=== PATIENT | female | born 1945 | race Caucasian/White ===

== ENCOUNTER 2020-07-05 07:23 | Day surgery (SDC) | payer MEDICARE, OTHER, SELFPAY ==
--- NOTE | 2020-07-05 07:38 | ANES.PREOP_ITS ---
General Info Date of Service Date Performed: 07/05/20 Height: 5 ft 7 in Weight: 82.554 kg Body Mass Index (BMI): 28.5 Surgical Procedure: Operation Date: 07/05/20 09:40 Proposed Procedures Side Surgeon p Cataract Extraction with IOL Implant Left Micah Nickerson MD Meds Allergies and Home Medications Allergies Allergy/AdvReac Type Severity Reaction Status Date / Time No Known Allergies Allergy Unverified 07/05/20 07:53 Home Medication Medication Instructions Recorded atenolol 50 mg PO DAILY tab-cap NS 05/30/16 clotrimazole-betamethasone 15 gm TOPICAL DAILY NS 05/30/16 [Lotrisone Cream] estradiol [Vagifem] 10 mcg VG DAILY tab NS 05/30/16 ferrous sulfate 325 mg PO DAILY NS 05/30/16 levothyroxine 125 mcg PO DAILY tab-cap NS 05/30/16 lisinopril 40 mg PO DAILY tab-cap NS 05/30/16 lorazepam 0.5 mg PO DAILY NS 05/30/16 potassium chloride 10 meq PO DAILY 05/30/16 sertraline [Zoloft] 50 mg PO DAILY tab-cap NS 05/30/16 simvastatin 10 mg PO DAILY tab-cap NS 05/30/16 terazosin 1 mg PO DAILY tab-cap NS 05/30/16 tolterodine [Detrol La] 4 mg PO DAILY tab-cap NS 05/30/16 triamcinolone acetonide 15 gm TOPICAL DAILY script NS 05/30/16 fesoterodine [Toviaz] 4 mg PO DAILY 06/30/20 meloxicam 15 mg PO DAILY 06/30/20 metformin 500 mg PO BID 06/30/20 sulfamethoxazole-trimethoprim 1 tab PO DAILY 06/30/20 [Bactrim] Current Visit Medications: Current Medications Generic Name Dose Route Start Last Admin Trade Name Freq PRN Reason Stop Dose Admin Acetaminophen 1,000 mg 07/05/20 06:00 Acetaminophen 500 Mg Tab PO Q4H PRN PRN Miscellaneous Medication 0 ml 07/05/20 06:00 Prednisolone 1%, Moxifloxacin 0.5%, Nepafenac 0.1% 5ml Btl OS DIRECTED SANJEEV Miscellaneous Medication 0 ml 07/05/20 06:00 Tropicam./Phenyleph. (1/2.5%) 5 Ml Btl OS DIRECTED [facility] Tetracaine HCl 0 ml 07/05/20 06:00 Tetracaine 0.5% 4 Ml Btl OS DIRECTED [facility] PFSH Active Problems Active Problems: Problem Status Onset Code Cortical cataract of left eye H26.9 Nuclear sclerotic cataract of left eye H25.12 Medical History Medical History Anemia Chest pain Pt. 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 states she is not aware of this. Dysthymia Hypercholesterolemia Hypertension Hypothyroidism Lichen sclerosus Migraines Vitamin B 12 deficiency Tobacco Smoking/Tobacco Use Status: Never Alcohol Alcohol Intake: never Substance Use Substance use: Never Substance use type: does not use Vital Signs and Lab Results Vital Signs Most Recent Vital Signs in EMR: Temp Pulse Resp BP Pulse Ox 36.1 C L 60 20 190/75 H 99 07/05/20 07:53 07/05/20 07:53 07/05/20 07:53 07/05/20 07:53 07/05/20 07:53 Lab Results Blood Type / Crossmatch: No Data to Display Complete Blood Count: No Data to Display Complete Metabolic Panel: No Data to Display Liver Function Panel: No Data to Display Coagulation Panel: No Data to Display Cardiac Panel: No Data to Display Arterial Blood Gas: No Data to Display Venous Blood Gas: No Data to Display Pancreas Panel: No Data to Display Thyroid Panel: No Data to Display Infectious Disease: No Data to Display Blood Cultures: No Data to Display Toxicology Panel: No Data to Display Anesthesia Assessment and Plan Anesthesia History Personal History: No History of Anesthesia Complications Family History: No Family History of Anesthesia Complications Exercise Tolerance Exercise Tolerance: Metabolic Equivalents>4 Cardiac & Pulmonary Exam Cardiac Exam: Normal S1/S2 Heart Sounds Pulmonary Exam: Clear Bilateral Breath Sounds Airway Exam Known Difficult Airway: No Mallampati Class: 2 Mouth Opening: Normal (> 3cm) Thyromental Distance: Greater than 3 cm Neck Range of Motion: Limited ROM Neck Circumference: Normal Teeth Condition: Normal Dentition ASA Classification ASA Score: ASA 2 Emergency Case?: No NPO Status NPO Status: NPO Clears >2 hours, Solids >8 hours Anesthesia Plan Resuscitation Status: Full Code Anesthesia Technique: MAC Anesthesia Airway Planned: Natural Airway Monitors Used: Standard Monitors
[2020-07-05 07:53] VITALS: BP 190/75; PULSE 60; RESP 20; TEMP 36.1; O2SAT 99
[2020-07-05] MEDS: Tropicam./Phenyleph. (1/2.5%) 5 ML BTL OS ×3 (08:06→08:24)
[2020-07-05 08:20] VITALS: BMI 28.5
[2020-07-05] MEDS: Balanced Salt Soln.-PLUS 500 ML BAG (09:01)
[2020-07-05] MEDS: Lidocaine 1% Pres-Free 5 ML VIAL (09:02)
[2020-07-05] MEDS: Duovisc Viscoelastic System EACH 1 EACH (09:02)
[2020-07-05] MEDS: Lidocaine 2% Jelly 6 ML SYR (09:03)
[2020-07-05] MEDS: Povidone-Iodine Ophth 30 ML BTL (09:05)
[2020-07-05] MEDS: Tetracaine 0.5% 4 ML BTL OS (09:06)
[2020-07-05 09:18] VITALS: BP 194/81; PULSE 63; RESP 16; TEMP 36.3; O2SAT 99
--- NOTE | 2020-07-05 09:18 | W.PM.DSUDISC ---
Discharge Plan Disposition Patient Disposition: HOME Condition: Good Discharge Details Reason For Visit: HIP DIR Attending Provider: Micah Nickerson Primary Care Provider: Linda Redd Home Meds and New Rx's Prescriptions: No Action potassium chloride 10 MEQ capsule, extended release 10 meq PO DAILY RF: 0 triamcinolone acetonide 15 GM cream 15 gm Topical DAILY RF: 0 tolterodine [Detrol LA] 4 MG capsule,extended release 24hr 4 mg PO DAILY RF: 0 simvastatin 10 MG tablet 10 mg PO DAILY RF: 0 terazosin 1 MG capsule 1 mg PO DAILY RF: 0 lorazepam 0.5 MG tablet 0.5 mg PO DAILY RF: 0 ferrous sulfate 325 MG tablet 325 mg PO DAILY RF: 0 levothyroxine 125 MCG tablet 125 mcg PO DAILY RF: 0 clotrimazole-betamethasone [Lotrisone] 15 GM cream 15 gm Topical DAILY RF: 0 lisinopril 40 MG tablet 40 mg PO DAILY RF: 0 sertraline [Zoloft] 50 MG tablet 50 mg PO DAILY RF: 0 atenolol 50 MG tablet 50 mg PO DAILY RF: 0 estradiol [Vagifem] 10 MCG tablet 10 mcg VG DAILY RF: 0 metformin 500 mg Tablet 500 mg PO BID RF: 0 sulfamethoxazole-trimethoprim [Bactrim] 400-80 mg Tablet 1 tab PO DAILY RF: 0 meloxicam 15 mg Tablet 15 mg PO DAILY RF: 0 Toviaz 4 mg Tablet Extended Release 24 Hr 4 mg PO DAILY RF: 0 Discharge Instructions Stand Alone Forms: Post-op Topical Cataract, Sander Choe ([facility]) Discharge Orders Discharge Orders: Discharge Order (Routine); Ordered 07/05/20 Ordered By: Micah Nickerson DS: Diagnosis Discharge Diagnosis (1) Nuclear sclerotic cataract of left eye: Status: Resolved (2) Cortical cataract of left eye: Status: Resolved
--- NOTE | 2020-07-05 09:19 | ROE_ITS ---
Date of service: 07/05/20 Time of Service: 09:19 Operative Note Operative Note DATE OF PROCEDURE: 07/05/20 PRE-OP DIAGNOSIS: Nuclear/cortical cataract, left eye POST-OP DIAGNOSIS: same PROCEDURE: Cataract extraction using phacoemulsification with intraocular lens implant, left eye SURGEON: Micah Nickerson ANESTHESIA TYPE: Local By Surgeon and MAC Refer to Anesthesia Record PATHOLOGY: none sent COMPLICATIONS: None Patient was transported to: same day Patient's condition: stable Implants: Derick and Derick Vision / [employer] Tecnis ZCB00 Indications: Progressive decreased vision due to cataract, left eye Procedure Description: CATARACT SURGERY OPERATIVE REPORT PREOPERATIVE DIAGNOSIS: Nuclear/cortical cataract, left eye POSTOPERATIVE DIAGNOSIS: Same OPERATION: Cataract extraction using phacoemulsification with posterior chamber intraocular lens implant, left eye. IOL: IOL Geriatric Personal Care Aide/Model: J[employer] Vision / TANK Tecnis ZCB00 IOL Power: + 22.0 diopters IOL Serial Number: [id number] Optic Diameter: 6.0mm Haptic/Overall Diameter: 13.0mm PHACO INFO: Wallace SuperM[employer]urion Vision System with OZil and Active Fluidics Cumulative Dispersed Energy (CDE): 14.17 seconds SURGEON: Micah Nickerson MD, PATRICIA ANESTHESIA: Monitored Anesthesia Care (MAC), with local sub-tenon's anesthetic infiltration COMPLICATIONS: None SPECIMENS: None INDICATIONS FOR PROCEDURE: Patient is a 75-year-old lady with history of diminished visual acuity in her left eye. She is noted to have a significant nuclear and cortical cataract. The option of cataract surgery was offered to the patient and she wished to proceed. PROCEDURE: The correct surgical eye was identified and marked as the left eye and the pupil was dilated in the preoperative area using mydriatics and cycloplegics. The dilated pupil size was 6.5 mm. The patient was brought to the operating room where cardiopulmonary monitoring was instituted and surgical time-out was performed, confirming the correct operative eye and IOL power. She elected to proceed without oral sedation. Topical anesthesia was administered and ophthalmic povidone-iodine 5% was instilled into the conjunctival fornices. Lidocaine gel was applied to the cornea and the claudio-ocular area was prepped with Betadine 10% solution and draped in the usual sterile fashion for intraocular surgery, including an aperture drape. A Tegaderm transparent film dressing was cut in half and used to cover the lashes and lid margins. Care was taken to sequester the lashes and lid margins under the Tegaderm dressing. A lid speculum was placed between the lids of the operative eye and the Markell-Italo operating microscope was maneuvered into position. Heather scissors were then used to make a conjunctival buttonhole approximately 6mm posterior to the limbus in the inferonasal quadrant. Blunt dissection was carried out to expose bare sclera, and a blunt-tipped sub-tenon?s anesthesia cannula was introduced and passed posteriorly along the globe where non- preserved plain lidocaine was injected into posterior sub-Tenon?s space. A sideport knife was used to make a paracentesis port superior/superiortemporally. Intraocular phenylephrine/lidocaine was injected into the anterior chamber. The anterior chamber was then filled with viscoelastic. A 2.4mm keratome knife was used to create a half-thickness groove at the limbus and then to construct a three-plane near-clear corneal tunnel extending 2.0mm into clear cornea in the temporal position. . A flap was raised on the anterior capsule and capsulorhexis forceps were used to complete a continuous curvilinear capsulorhexis of 5.0 mm. Balanced salt solution was then used to perform cortical cleaving hydrodissection and nuclear hydrodelineation until the lens could be freely rotated within the capsular bag. The lens nucleus was then disassembled and removed within the capsular bag and iris plane using phacoemulsification. Residual cortical material was removed using the 45-degree angled silicone I/A tip with 0.3mm port. The posterior capsule was carefully polished to remove as much residual lens epithelial cells as safely possible. The capsular bag was then inflated and the anterior chamber deepened with viscoelastic. The lens implant described above was inserted into the capsular bag using the TANK [place] Injector. A Kuglen hook was used to dial the IOL into position. Residual viscoelastic was then removed first from posterior to the IOL, then from the anterior chamber using the I/A handpiece. The lens implant was noted to center nicely within the capsular bag. The incisions were stromally hydrated, and the anterior chamber was reformed using BSS. Then 0.5cc of moxifloxacin 1.0mg/ml were injected into the capsular bag and anterior chamber. The incisions were checked with a Weck spear and found to be secure. Several drops of ophthalmic povidone-iodine 5% were then applied to the eye followed by two drops of Imprimis combination prednisolone/moxifloxacin/nepafenac solution. The drapes were removed and a clear plastic protective eye shield was placed over the eye. The patient was then returned to Same Day Surgery in stable condition.
--- NOTE | 2020-07-05 09:41 | W.ANESPOSTOP ---
Postoperative Evaluation Date, Time and Location Date Performed: 07/05/20 Time Performed: 09:42 Patient Location: Day Surgery Unit Vital Signs Most Recent Imported Vital Signs: Most Recent Vital Signs Temp Pulse Resp BP Pulse Ox 36.3 C L 63 16 194/81 H 99 07/05/20 09:18 07/05/20 09:18 07/05/20 09:18 07/05/20 09:18 07/05/20 09:18 Pain Score Most Recent Pain Score: Most Recent Pain Score Pain Level 0 07/05/20 09:18 Assessment Mental Status: Awake (Alert & Oriented to Patient Baseline) Airway and Respiratory Function: Patent airway with normal (patient baseline) respiratory exam Cardiovascular Function: Hemodynamically Stable Hydration Status: Adequately Hydrated Nausea & Vomiting: No Nausea or Vomiting Pain: Pt. Denies Any Pain Peripheral Nerve Block: Patient did not receive a nerve block
== END 2020-07-05 09:43 | disposition home or self-care (01) ==
PROVIDERS: PCP Nurse Practitioner; Visit Provider Ophthalmology
PROC: (CPT 66984; principal; 2020-07-05 09:30)
DX: H25.12 Age-related nuclear cataract, left eye (principal)
CPT/HCPCS: 66984; V2632

== ENCOUNTER 2020-07-19 07:23 | Day surgery (SDC) | payer MEDICARE, OTHER, SELFPAY ==
[2020-07-19] MEDS: Tropicam./Phenyleph. (1/2.5%) 5 ML BTL OD ×3 (07:51→08:01)
[2020-07-19 07:57] VITALS: BP 159/67; PULSE 61; RESP 18; TEMP 36.1; O2SAT 100
--- NOTE | 2020-07-19 08:10 | W.ANESPRE ---
General Info Date of Service Date Performed: 07/19/20 Height: 5 ft 7 in Weight: 88.9 kg Body Mass Index (BMI): 30.7 Surgical Procedure: Operation Date: 07/19/20 09:10 Proposed Procedures Side Surgeon p Cataract Extraction with IOL Implant Right Micah Nickerson MD Meds Allergies and Home Medications Allergies Allergy/AdvReac Type Severity Reaction Status Date / Time No Known Allergies Allergy Unverified 07/19/20 07:42 Home Medication Medication Instructions Recorded atenolol 50 mg PO DAILY tab-cap NS 05/30/16 clotrimazole-betamethasone 15 gm TOPICAL DAILY NS 05/30/16 [Lotrisone Cream] estradiol [Vagifem] 10 mcg VG DAILY tab NS 05/30/16 ferrous sulfate 325 mg PO DAILY NS 05/30/16 levothyroxine 125 mcg PO DAILY tab-cap NS 05/30/16 lisinopril 40 mg PO DAILY tab-cap NS 05/30/16 lorazepam 0.5 mg PO DAILY NS 05/30/16 potassium chloride 10 meq PO DAILY 05/30/16 sertraline [Zoloft] 50 mg PO DAILY tab-cap NS 05/30/16 simvastatin 10 mg PO DAILY tab-cap NS 05/30/16 terazosin 1 mg PO DAILY tab-cap NS 05/30/16 tolterodine [Detrol La] 4 mg PO DAILY tab-cap NS 05/30/16 triamcinolone acetonide 15 gm TOPICAL DAILY script NS 05/30/16 fesoterodine [Toviaz] 4 mg PO DAILY 06/30/20 meloxicam 15 mg PO DAILY 06/30/20 metformin 500 mg PO BID 06/30/20 sulfamethoxazole-trimethoprim 1 tab PO DAILY 06/30/20 [Bactrim] Current Visit Medications: Current Medications Generic Name Dose Route Start Last Admin Trade Name Freq PRN Reason Stop Dose Admin Acetaminophen 1,000 mg 07/19/20 06:00 Acetaminophen 500 Mg Tab PO Q4H PRN PRN Miscellaneous Medication 0 ml 07/19/20 06:00 Prednisolone 1%, Moxifloxacin 0.5%, Nepafenac 0.1% 5ml Btl OD DIRECTED SANJEEV Miscellaneous Medication 0 ml 07/19/20 06:00 07/19/20 08:01 Tropicam./Phenyleph. (1/2.5%) 5 Ml Btl OD 1 drp DIRECTED SANJEEV Administration Tetracaine HCl 0 ml 07/19/20 06:00 Tetracaine 0.5% 4 Ml Btl OD DIRECTED SANJEEV PFS Active Problems Active Problems: Problem Status Onset Code Nuclear sclerotic cataract of left eye H25.12 Cortical cataract of left eye H26.9 Cortical cataract of right eye H26.9 Nuclear sclerotic cataract of right eye H25.11 Medical History Medical History Anemia Chest pain Pt. 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 states she is not aware of this. Dysthymia Hypercholesterolemia Hypertension Hypothyroidism Lichen sclerosus Migraines Vitamin B 12 deficiency Surgical History Surgical History (Updated 07/19/20 @ 07:48 by Chelly Asif) Hx of cataract extraction Left Hx of hysterectomy Tobacco Smoking/Tobacco Use Status: Never Alcohol Alcohol Intake: never Substance Use Substance use: Never Substance use type: does not use Vital Signs and Lab Results Vital Signs Most Recent Vital Signs in EMR: Most Recent Vital Signs Temp Pulse Resp BP Pulse Ox 36.1 C L 61 18 159/67 H 100 07/19/20 07:57 07/19/20 07:57 07/19/20 07:57 07/19/20 07:57 07/19/20 07:57 Point of Care Results Point of Care Results: Finger Stick Blood Glucose 264 07/19/20 07:54 Metformin not taken last evening and this am. Will resume following procedure. Lab Results Blood Type / Crossmatch: No Data to Display Complete Blood Count: No Data to Display Complete Metabolic Panel: No Data to Display Liver Function Panel: No Data to Display Coagulation Panel: No Data to Display Cardiac Panel: No Data to Display Arterial Blood Gas: No Data to Display Venous Blood Gas: No Data to Display Pancreas Panel: No Data to Display Thyroid Panel: No Data to Display Infectious Disease: No Data to Display Blood Cultures: No Data to Display Toxicology Panel: No Data to Display Anesthesia Assessment and Plan Anesthesia History Personal History: No History of Anesthesia Complications Family History: No Family History of Anesthesia Complications Exercise Tolerance Exercise Tolerance: Metabolic Equivalents<4 Pertinent Negatives Pertinent Negatives: No Symptoms of GERD, No Major Cardiovascular Symptoms or Complaints and No Major Pulmonary Symptoms or Complaints Cardiac & Pulmonary Exam Cardiac Exam: Normal S1/S2 Heart Sounds Pulmonary Exam: Clear Bilateral Breath Sounds Airway Exam Known Difficult Airway: No Mallampati Class: 2 Mouth Opening: Normal (> 3cm) Thyromental Distance: Greater than 3 cm Neck Range of Motion: Limited ROM Neck Circumference: Normal Teeth Condition: Removable Dentures/Plates Upper and Removable Dentures/Plates Lower ASA Classification ASA Score: ASA 3 Emergency Case?: No NPO Status NPO Status: NPO Clears >2 hours, Solids >8 hours Anesthesia Plan Resuscitation Status: Full Code Anesthesia Technique: MAC Anesthesia Airway Planned: Natural Airway Monitors Used: Standard Monitors
[2020-07-19 08:37] VITALS: BMI 30.7
[2020-07-19] MEDS: Tetracaine 0.5% 4 ML BTL OD (08:49)
[2020-07-19] MEDS: Lidocaine 1% Pres-Free 5 ML VIAL (08:50)
[2020-07-19] MEDS: Povidone-Iodine Ophth 30 ML BTL (08:50)
[2020-07-19] MEDS: Lidocaine 2% Jelly 6 ML SYR (08:50)
[2020-07-19] MEDS: Balanced Salt Soln.-PLUS 500 ML BAG (09:01)
[2020-07-19] MEDS: Duovisc Viscoelastic System EACH 1 EACH (09:01)
[2020-07-19 09:17] VITALS: BP 170/71; PULSE 59; RESP 16; TEMP 36.5; O2SAT 100
--- NOTE | 2020-07-19 09:17 | W.PM.DSUDISC ---
Discharge Plan Disposition Patient Disposition: HOME Condition: Good Discharge Details Reason For Visit: CATARACT Attending Provider: Micah Nickerson Primary Care Provider: Linda Redd Home Meds and New Rx's Prescriptions: No Action potassium chloride 10 MEQ capsule, extended release 10 meq PO DAILY RF: 0 triamcinolone acetonide 15 GM cream 15 gm Topical DAILY RF: 0 tolterodine [Detrol LA] 4 MG capsule,extended release 24hr 4 mg PO DAILY RF: 0 simvastatin 10 MG tablet 10 mg PO DAILY RF: 0 terazosin 1 MG capsule 1 mg PO DAILY RF: 0 lorazepam 0.5 MG tablet 0.5 mg PO DAILY RF: 0 ferrous sulfate 325 MG tablet 325 mg PO DAILY RF: 0 levothyroxine 125 MCG tablet 125 mcg PO DAILY RF: 0 clotrimazole-betamethasone [Lotrisone] 15 GM cream 15 gm Topical DAILY RF: 0 lisinopril 40 MG tablet 40 mg PO DAILY RF: 0 sertraline [Zoloft] 50 MG tablet 50 mg PO DAILY RF: 0 atenolol 50 MG tablet 50 mg PO DAILY RF: 0 estradiol [Vagifem] 10 MCG tablet 10 mcg VG DAILY RF: 0 metformin 500 mg Tablet 500 mg PO BID RF: 0 sulfamethoxazole-trimethoprim [Bactrim] 400-80 mg Tablet 1 tab PO DAILY RF: 0 meloxicam 15 mg Tablet 15 mg PO DAILY RF: 0 Toviaz 4 mg Tablet Extended Release 24 Hr 4 mg PO DAILY RF: 0 Discharge Instructions Stand Alone Forms: Post-op Block Cataract, Post-op Topical Cataract, Sander Choe ([facility]) Discharge Orders Discharge Orders: Discharge Order (Routine); Ordered 07/19/20 Ordered By: Micah Nickerson DS: Diagnosis Discharge Diagnosis (1) Cortical cataract of right eye: Status: Resolved (2) Nuclear sclerotic cataract of right eye: Status: Resolved
--- NOTE | 2020-07-19 09:19 | W.PM.OP ---
Date of service: 07/19/20 Time of Service: 09:19 Operative Note Operative Note DATE OF PROCEDURE: 07/19/20 PRE-OP DIAGNOSIS: Nuclear/cortical cataract, right eye POST-OP DIAGNOSIS: same PROCEDURE: Cataract extraction using phacoemulsification with intraocular lens implant, right eye SURGEON: Micah Nickerson ANESTHESIA TYPE: Local By Surgeon and MAC Refer to Anesthesia Record ESTIMATED BLOOD LOSS: 0 PATHOLOGY: none sent COMPLICATIONS: None Patient was transported to: same day Patient's condition: stable Implants: Derick and [employer]ick Vision / [employer] Tecnis ZCB00 intraocular lens Indications: Progressive decreased vision due to cataract, right eye Procedure Description: CATARACT SURGERY OPERATIVE REPORT PREOPERATIVE DIAGNOSIS: Nuclear/cortical cataract, right eye POSTOPERATIVE DIAGNOSIS: Same OPERATION: Cataract extraction using phacoemulsification with posterior chamber intraocular lens implant, right eye. IOL: IOL Web Portal Developer/Model: J[employer]J Vision / TANK Tecnis ZCB00 IOL Power: + 21.5 diopters IOL Serial Number: [id number] Optic Diameter: 6.0mm Haptic/Overall Diameter: 13.0mm PHACO INFO: Wallace [place] [employer]ion Vision System with OZil and Active Fluidics Cumulative Dispersed Energy (CDE): 14.27 seconds SURGEON: Micah Nickerson MD, PATRICIA ANESTHESIA: Monitored Anesthesia Care (MAC), with local sub-tenon's anesthetic infiltration COMPLICATIONS: None SPECIMENS: None INDICATIONS FOR PROCEDURE: The patient is a 75-year-old lady with history of diminished visual acuity in both eyes secondary to the development of bilateral nuclear and cortical cataract. She has already undergone cataract surgery in the left eye and is doing well postoperatively. She now presents for cataract surgery in the right eye. PROCEDURE: The correct surgical eye was identified and marked as the right eye and the pupil was dilated in the preoperative area using mydriatics and cycloplegics. The dilated pupil size was 7.0 mm. She elected to proceed without oral sedation. The patient was brought to the operating room where cardiopulmonary monitoring was instituted and surgical time-out was performed, confirming the correct operative eye and IOL power. Topical anesthesia was administered and ophthalmic povidone-iodine 5% was instilled into the conjunctival fornices. Lidocaine gel was applied to the cornea and the claudio-ocular area was prepped with Betadine 10% solution and draped in the usual sterile fashion for intraocular surgery, including an aperture drape. A Tegaderm transparent film dressing was cut in half and used to cover the lashes and lid margins. Care was taken to sequester the lashes and lid margins under the Tegaderm dressing. A lid speculum was placed between the lids of the operative eye and the Markell-Italo operating microscope was maneuvered into position. Heather scissors were then used to make a conjunctival buttonhole approximately 6mm posterior to the limbus in the inferonasal quadrant. Blunt dissection was carried out to expose bare sclera, and a blunt-tipped sub-tenon?s anesthesia cannula was introduced and passed posteriorly along the globe where non-preserved plain lidocaine was injected into posterior sub-Tenon?s space. A sideport knife was used to make a paracentesis port inferiortemporally. Intraocular phenylephrine/lidocaine was injected into the anterior chamber. The anterior chamber was then filled with viscoelastic. A 2.4mm keratome knife was used to create a half-thickness groove at the limbus and then to construct a three-plane near-clear corneal tunnel extending 2.0mm into clear cornea in the superiortemporal position. . A flap was raised on the anterior capsule and capsulorhexis forceps were used to complete a continuous curvilinear capsulorhexis of 5.5 mm. Balanced salt solution was then used to perform cortical cleaving hydrodissection and nuclear hydrodelineation until the lens could be freely rotated within the capsular bag. The lens nucleus was then disassembled and removed within the capsular bag and iris plane using phacoemulsification. Residual cortical material was removed using the I/A handpiece. The posterior capsule was carefully polished to remove as much residual lens epithelial cells as safely possible. The capsular bag was then inflated and the anterior chamber deepened with viscoelastic. The lens implant described above was inserted into the capsular bag using the TANK [place] Injector. A Kuglen hook was used to dial the IOL into position. Residual viscoelastic was then removed first from posterior to the IOL, then from the anterior chamber using the I/A handpiece. The lens implant was noted to center nicely within the capsular bag. The incisions were stromally hydrated, and the anterior chamber was reformed using BSS. Then 0.5cc of moxifloxacin 1.0mg/ml were injected into the capsular bag and anterior chamber. The incisions were checked with a Weck spear and found to be secure. Several drops of ophthalmic povidone-iodine 5% were then applied to the eye followed by two drops of Imprimis combination prednisolone/moxifloxacin/nepafenac solution. The drapes were removed and a clear plastic protective eye shield was placed over the eye. The patient was then returned to Same Day Surgery in stable condition.
--- NOTE | 2020-07-19 09:25 | W.ANESPOSTOP ---
Postoperative Evaluation Date, Time and Location Date Performed: 07/19/20 Time Performed: 09:25 Patient Location: Day Surgery Unit Vital Signs Most Recent Imported Vital Signs: Most Recent Vital Signs Temp Pulse Resp BP Pulse Ox 36.5 C 59 L 16 170/71 H 100 07/19/20 09:17 07/19/20 09:17 07/19/20 09:17 07/19/20 09:17 07/19/20 09:17 Pain Score Most Recent Pain Score: Most Recent Pain Score Pain Level 0 07/19/20 09:17 Assessment Mental Status: Awake (Alert & Oriented to Patient Baseline) Airway and Respiratory Function: Patent airway with normal (patient baseline) respiratory exam Cardiovascular Function: Hemodynamically Stable Hydration Status: Adequately Hydrated Nausea & Vomiting: No Nausea or Vomiting Pain: Pt. Denies Any Pain Peripheral Nerve Block: Patient did not receive a nerve block
== END 2020-07-19 09:49 | disposition home or self-care (01) ==
PROVIDERS: PCP Nurse Practitioner; Visit Provider Ophthalmology
PROC: (CPT 66984; principal; 2020-07-19 09:00)
DX: H25.11 Age-related nuclear cataract, right eye (principal); E11.9 Type 2 diabetes mellitus without complications; I10 Essential (primary) hypertension; E78.5 Hyperlipidemia, unspecified
CPT/HCPCS: 66984; V2632